=== PATIENT | female | born 1945 | race Caucasian/White ===

== ENCOUNTER 2017-11-27 07:10 | Emergency (ER) | payer OTHER ==
[2017-11-27 07:36] VITALS: BP 164/67; PULSE 81; TEMP 98.4; BMI 17.9
--- NOTE | 2017-11-27 07:41 | PDOC ---
History of Present Illness - General Chief Complaint: Pain Stated Complaint: LEFT RIB/PAIN Time Seen by Provider: 11/27/17 07:15 History Source: Patient Exam Limitations: No Limitations - History of Present Illness Initial Comments: 72 yo F history HL, osteoporosis presents with L sided chest pain. She states that it started last night while she was on the phone at 8:30pm. She has been under recent emotional stress. She states that she felt the pain last night, took tylenol with incomplete relief, felt mild pain when she went to bed last night around 11pm. She still has mild pain today despite tylenol. No N/V, sweating, SOB. Pain is not pleuritic. No recent leg swelling. She states that she had similar pain about 6 months ago, occurred after she was exercising at the gym. She took tylenol at the time and did not think much of it. She saw her manager technical Dr. Caro recently for routine follow-up, but did not mention the event. She had a stress test and a cardiac cath about 5 years ago, both reportedly negative. She had a recent echo with Dr. Caro. Past History - Past Medical History Allergies/Adverse Reactions: Allergies Allergy/AdvReac Type Severity Reaction Status Date / Time No Known Allergies Allergy Verified 11/27/17 07:16 Home Medications: Ambulatory Orders Acetaminophen [Tylenol] 325 mg PO PRN PRN 08/08/12 Rosuvastatin Calcium [Crestor] 5 mg PO DAILY 08/08/12 Estrogen,Con/M-Progest Acet [Prempro 0.45-1.5 mg Tablet] 1 each PO DAILY COPD: No Hypercholesterolemia: Yes - Suicide/Smoking/Psychosocial Hx Smoking Status: No Smoking History: Unknown if ever smoked Have you smoked in the past 12 months: No Number of Cigarettes Smoked Daily: 0 Information on smoking cessation initiated: No Hx Alcohol Use: No Drug/Substance Use Hx: No Substance Use Type: None Review of Systems - Review of Systems Able to Perform ROS?: Yes Comments:: GENERAL/CONSTITUTIONAL: No fever or chills. No weakness. HEAD, EYES, EARS, NOSE AND THROAT: No change in vision. No ear pain or discharge. No sore throat. CARDIOVASCULAR: No shortness of breath. +Chest pain RESPIRATORY: No cough, wheezing, or hemoptysis. GASTROINTESTINAL: No nausea, vomiting, diarrhea or constipation. GENITOURINARY: No dysuria, frequency, or change in urination. MUSCULOSKELETAL: No joint or muscle swelling or pain. No neck or back pain. SKIN: No rash NEUROLOGIC: No headache, vertigo, loss of consciousness, or change in strength/ sensation. ENDOCRINE: No increased thirst. No abnormal weight change. HEMATOLOGIC/LYMPHATIC: No anemia, easy bleeding, or history of blood clots. ALLERGIC/IMMUNOLOGIC: No hives or skin allergy. *Physical Exam - Vital Signs Last Vital Signs Temp Pulse Resp BP Pulse Ox 98.4 F 81 20 164/67 100 11/27/17 07:14 11/27/17 07:14 11/27/17 07:14 11/27/17 07:14 11/27/17 07:14 - Physical Exam Comments: GENERAL: Awake, alert, and fully oriented, in no acute distress HEAD: No signs of trauma EYES: PERRLA, EOMI, sclera anicteric, conjunctiva clear ENT: Auricles normal inspection, hearing grossly normal, nares patent, oropharynx clear without exudates. Moist mucosa NECK: Normal ROM, supple, no lymphadenopathy, JVD, or masses LUNGS: Breath sounds equal, clear to auscultation bilaterally. No wheezes, and no crackles. Pain is not reproducible. HEART: Regular rate and rhythm, normal S1 and S2, no murmurs, rubs or gallops ABDOMEN: Soft, nontender, normoactive bowel sounds. No guarding, no rebound. No masses EXTREMITIES: Normal range of motion, no edema. No clubbing or cyanosis. No cords, erythema, or tenderness NEUROLOGICAL: Cranial nerves II through XII grossly intact. Normal speech, normal gait SKIN: Warm, Dry, normal turgor, no rashes or lesions noted. Heart Score/ECG Review - History History: Slightly suspicious - Electrocardiogram EKG: Normal - Age Age: >/= 65 - Risk Factors Risk Factors Heart Score: Yes Hx Hypercholesterolemia Based on the list above the patient has:: 1-2 risk factors - Troponin Troponin: </= normal limit - Score Heart Score - Total: 3 - ECG Impressions Comment:: EKG read 08:35- NSR 71 bpm, no acute ST/T changes ED Treatment Course - LABORATORY CBC & Chemistry Diagram: 11/27/17 08:22 11/27/17 08:22 Medical Decision Making - Medical Decision Making 11/27/17 08:33 Pt with L cp since last night, still with lingering pain today. She has prior similar symptoms following exercise a few months ago. Will obtain labs, CXR, and EKG. Will contact Dr. Caro when results return. 11/27/17 10:37 Case d/w Dr. Caro. Reviewed clinical findings. Recommended outpatient f/u. *DC/Admit/Observation/Transfer Diagnosis at time of Disposition: Chest pain Qualifiers: Chest pain type: unspecified Qualified Code(s): R07.9 - Chest pain, unspecified - Discharge Dispostion Disposition: HOME Condition at time of disposition: Stable Admit: No - Referrals - Patient Instructions - Post Discharge Activity
[2017-11-27 09:13] LABS: ALBUMIN 4.3 g/dl (3.5-5.0); ALK PHOS 70 U/L (32-92); ANION GAP 7 (8-16); BILIRUBIN,TOTAL 0.5 mg/dl (0.2-1.0); BLOOD UREA NITROGEN 12 mg/dl (7-18); CALCIUM 8.9 mg/dl (8.4-10.2); CHLORIDE 105 mmol/L (98-107); CO2 26 mmol/L (22-28); CREATININE 0.8 mg/dl (0.6-1.3); GLUCOSE,RANDOM 88 mg/dl (74-106); SGOT/AST 24 U/L (10-42); SGPT/ALT 15 U/L (10-40); SODIUM 138 mmol/L (136-145); TOT PROT 7.1 g/dl (6.4-8.3)
[2017-11-27 09:21] LABS: BASO % 0.6 % (0-2.0); HEMATOCRIT 37.6 % (32.4-45.2); HEMOGLOBIN 12.7 GM/dL (10.7-15.3); LYMPH % 14.3 % (8-40); MCH 31.5 pg (25.7-33.7); MCHC 33.7 g/dl (32.0-36.0); MEAN CELL VOLUME 93.6 fl (80-96); MEAN PLT VOLUME 8.4 fl (7.5-11.1); NEUT % 76.1 % (42.8-82.8); PLATELET COUNT 311 K/MM3 (134-434); RBC 4.02 M/mm3 (3.60-5.2); RDW 13.7 % (11.6-15.6)
--- NOTE | 2017-11-27 12:42 | EKG ---
Test Reason : Blood Pressure : / mmHG Vent. Rate : 071 BPM Atrial Rate : 071 BPM P-R Int : 124 ms QRS Dur : 076 ms QT Int : 398 ms P-R-T Axes : 078 051 037 degrees QTc Int : 432 ms NORMAL SINUS RHYTHM POSSIBLE LEFT ATRIAL ENLARGEMENT BORDERLINE ECG WHEN COMPARED WITH ECG OF 10-SEP-2010 23:06, PREMATURE SUPRAVENTRICULAR COMPLEXES ARE NO LONGER PRESENT Confirmed by ASHLEY SÁNCHEZ, HERB ([id number]) on 11/27/2017 12:41:36 PM Referred By: TOM SUAREZ Confirmed By:HERB RAMIREZ MD
== END 2017-11-27 10:43 | disposition home or self-care (01) ==
LOC: FER 07:10
DX: R07.9 Chest pain, unspecified (principal); E78.00 Pure hypercholesterolemia, unspecified
CPT/HCPCS: 36415; 71046-TC-FY; 80053; 82550; 84484; 85025; 93005; 99282-25

== ENCOUNTER 2021-06-16 22:53 | Emergency (ER) | payer OTHER ==
[2021-06-16 23:01] VITALS: TEMP 98.8; BMI 17.2
[2021-06-17] MEDS ORDERED: VALSARTAN 40 MG TABLET PO ONE ×2 (00:07→01:19)
[2021-06-17] MEDS ORDERED: VALSARTAN 80 MG TABLET ONE ×2 (00:38→01:47)
[2021-06-17 01:57] VITALS: BP 158/87; PULSE 72
== END 2021-06-17 02:10 | disposition home or self-care (01) ==
LOC: JER 22:53
DX: I10 Essential (primary) hypertension (principal)
CPT/HCPCS: 93005; 93010; 99283-25

== ENCOUNTER 2021-06-25 22:36 | Emergency (ER) | payer OTHER ==
[2021-06-25 22:44] VITALS: TEMP 98; BMI 17.2
[2021-06-25] MEDS ORDERED: LORazepam 2 MG TABLET PO ONE (23:17)
[2021-06-25 23:38] VITALS: BP 156/67; PULSE 80
[2021-06-25] MEDS ORDERED: amLODIPine BESYLATE 5 MG TABLET (FP) ONE (23:40)
[2021-06-25] MEDS ORDERED: amLODIPine BESYLATE 2.5 MG TABLET (FP) PO ONE (23:40)
== END 2021-06-25 23:56 | disposition home or self-care (01) ==
LOC: FER 22:36
DX: I10 Essential (primary) hypertension (principal)
CPT/HCPCS: 93005; 99283-25

== ENCOUNTER 2022-04-13 14:08 | Emergency (ER) | payer OTHER ==
[2022-04-13 14:37] VITALS: BP 167/74; PULSE 90; RESP 16; TEMP 98; BMI 17.2
== END 2022-04-13 15:49 | disposition home or self-care (01) ==
LOC: FER 14:08
DX: S01.80XA Unspecified open wound of other part of head, initial encounter (principal); W01.0XXA Fall on same level from slipping, tripping and stumbling without subsequent striking against object, initial encounter
CPT/HCPCS: 70450-TC; 70486-TC; 72125-TC; 99285-25